=== PATIENT | female | born 1985 | race Two or more races ===

== ENCOUNTER 2017-03-26 21:15 | Emergency (ER) | payer OTHER ==
[2017-03-26 21:51] VITALS: BP 127/73; PULSE 74; TEMP 98.1; BMI 35.5
--- NOTE | 2017-03-26 22:35 | PDOC ---
History of Present Illness - General Chief Complaint: Eye Problem Stated Complaint: EYE PROBLEM Time Seen by Provider: 03/26/17 22:05 History Source: Patient Exam Limitations: No Limitations - History of Present Illness Initial Comments: 03/26/17 22:28 CC progressive painful pink eye x 4 days; seen in 2 ED; initially started on polytrim on last Friday; friday noted no improvement with sudden white vision ~ 20minutes on Friday; red eye worse today; sp[sapphire with Dr Charles; suggest will see pt in office tomorrow at 8:30 am Past History - Past Medical History Allergies/Adverse Reactions: Allergies Allergy/AdvReac Type Severity Reaction Status Date / Time codeine Allergy Severe Swelling Verified 03/26/17 21:52 naproxen Allergy Severe Swelling Verified 03/26/17 21:52 morphine Allergy Verified 03/26/17 21:52 Home Medications: Ambulatory Orders Albuterol Sulfate [Proair Respiclick] 90 mcg IH PRN PRN 03/26/17 - Psycho/Social/Smoking Cessation Hx Suicidal Ideation: No Smoking History: Never smoked Information on smoking cessation initiated: No Hx Alcohol Use: No Drug/Substance Use Hx: No Review of Systems - Review of Systems Constitutional: No: Chills, Fever, Malaise HEENTM: Yes: Ear Discharge. No: Ocular Prothesis, Nose Congestion Respiratory: Yes: Cough *Physical Exam - Vital Signs Last Vital Signs Temp Pulse Resp BP Pulse Ox 98.1 F 74 18 127/73 100 03/26/17 21:49 03/26/17 21:49 03/26/17 21:49 03/26/17 21:49 03/26/17 21:49 - Physical Exam General Appearance: Yes: Apparent Distress. No: Appropriately Dressed HEENT: positive: TMs Normal, Pharynx Normal, Other (red eye with photo sensitivity; ; vision with no correction: od= 20/ 100; os= 20/40). negative: Nasal Congestion, Rhinorrhea Medical Decision Making - Medical Decision Making 03/26/17 22:37 will see eye MD in am *DC/Admit/Observation/Transfer Diagnosis at time of Disposition: Conjunctivitis of right eye due to adenovirus - Discharge Dispostion Disposition: HOME Condition at time of disposition: Stable Admit: No - Referrals Referrals: Jeanine Mendoza [Primary Care Provider] - Sriram Charles MD [Staff Physician] - - Patient Instructions Additional Instructions: see Dr Charles in am at 8:30; no eye drops today - Post Discharge Activity Work/School Note: Back to Work
== END 2017-03-26 22:50 | disposition home or self-care (01) ==
LOC: JERFT 21:15
DX: H10.89 Other conjunctivitis (principal); B97.0 Adenovirus as the cause of diseases classified elsewhere
CPT/HCPCS: 99281-25